=== PATIENT | male | born 1950 | race Caucasian/White ===

== ENCOUNTER 2016-11-29 17:51 | Emergency (ER) | payer OTHER, MEDICARE ==
[2016-11-29 13:21] LABS: BASOPHILS 0.9 %; BASOPHILS ABSOLUTE 0.09 10/3/uL (0.0-0.16); EOSINOPHILS 9.4 %; EOSINOPHILS ABSOLUTE 0.95 10/3/uL (0.0-0.53); ER CBC TAT 0 Hrs 05 Mins; HEMATOCRIT 40.5 % (40.0-51.0); IMMATURE GRANULOCYTES 0.3 %; IMMATURE GRANULOCYTES ABSOLUTE 0.03 10/3/uL (0.0-0.11); LYMPHOCYTES 27.4 %; LYMPHOCYTES ABSOLUTE 2.76 10/3/uL (0.67-4.30); MEAN CORPUSCULAR HEMOGLOB 31.2 pg (26.0-34.0); MEAN CORPUSCULAR VOLUME 90.2 fL (80-100); MEAN PLATELET VOLUME 10.5 fL (9.2-13.0); MONOCYTES 8.6 %; MONOCYTES ABSOLUTE 0.87 10/3/uL (0.21-1.20); NEUTROPHILS 53.4 %; NEUTROPHILS ABSOLUTE 5.39 10/3/uL (2.02-8.40); PLATELET COUNT 160 10/3/uL (150-400); RBC DISTRIBUTION WIDTH 12.7 % (12.0-16.0); RED CELL COUNT 4.49 10/6/uL (4.7-6.1); WHITE BLOOD CELLS 10.1 10/3/uL (4.5-10.5)
[2016-11-29 13:23] LABS: MANUAL DIFF NO %; MEAN CORPUS HGB CONC 34.6 g/dL (32.0-36.0)
[2016-11-29 13:29] LABS: INTERNATIONAL NORMAL RATI 1.1 UNITS (-); PARTIAL THROMBO TIME 30.3 SEC (22.5-37.2); PROTIME (NOT ORD) 13.8 SEC (12.0-14.5)
[2016-11-29 13:38] LABS: BUN (BLOOD UREA NITROGEN) 15 MG/DL (6-23); CHEST PAIN PROFILE TAT 0 Hrs 22 Mins; CHLORIDE, SERUM 102 MMOL/L (96-112); CO2 (CARBON DIOXIDE) 28 MMOL/L (24-34); CREATININE 1.41 MG/DL (0.70-1.30); GFR AFRICAN AMERICAN 59 ML/MIN (>=60); GFR NON AFRICAN AMERICAN 51 ML/MIN (>=60); GLUCOSE, SERUM 197 MG/DL (60-99); SODIUM, SERUM 138 MMOL/L (135-148); TROPONIN I <0.02 NG/ML (<0.05)
[~2016-11-29 17:51] MED LIST: ACETSUP650 PR; ACETUDL PO; ASAB PO; BISR PR; C5; CLARIT10 PO; CORDARONE PO; COREG6 PO; DEMA20 PO; DEXTROSE 50% IV; DRY EYES OP; DULERA 200 MCG/13 GM INH; DUONEB INH; FESO4UDL PO; FISH-EPA1000 MG PO; FLOMAX4 PO; FLORASTOR250 MG PO; GLUCAGON IM; GLUCOPHAGE1000 MG PO; GLUCOSE TAB PO; KCL20UDL PO; L20 PO; LEVEMIR SC; LIPITOR10 PO; LIQUID TEARS OP; LOP25 PO; LOTE20 PO; MULTIVITAMI1 PO; MVIUDL PO; NASAREL29 MCG NAS; NEXIUM40 MG PO; NIZORALCRM TOP; NIZORSHAM T; NORV10 PO; NOVOLOG SC; PEP20 PO; PRILO PO; PROAIR HFA INH; SENTAB PO; SEROQUEL25 PO; SPIRIVA INH; STOOL SOFTEN240 MG PO; VITC500 PO; VOLT50 PO; [UNRECOGNIZED DRUG - OTHER] PO
== END 2016-11-29 18:16 | disposition home or self-care (01) ==
LOC: ER 17:51
PROVIDERS: Emergency Medicine
DX: I49.3 Ventricular premature depolarization (principal); I10 Essential (primary) hypertension; I25.2 Old myocardial infarction; Z95.5 Presence of coronary angioplasty implant and graft; I50.9 Heart failure, unspecified; I48.91 Unspecified atrial fibrillation; Z88.5 Allergy status to narcotic agent; Z88.8 Allergy status to other drugs, medicaments and biological substances; Z79.82 Long term (current) use of aspirin; Z79.4 Long term (current) use of insulin; Z79.01 Long term (current) use of anticoagulants; Z79.899 Other long term (current) drug therapy
CPT/HCPCS: 71020; 80048; 83735; 84484; 85025; 85610; 85730; 93005; 93225; 99285; A9270-GY